=== PATIENT | female | born 1935 | race Caucasian/White ===

== ENCOUNTER 2023-03-26 10:23 | Observation (INO) ==
[2023-03-26 11:32] LABS: Calcium 9.7 mg/dL (8.6-10.3); Total Bilirubin 0.5 mg/dL (0.2-1.0)
[2023-03-26 11:38] LABS: Albumin/Globulin Ratio 1.3 (1-3); Creatinine, Serum 1.25 mg/dL (0.51-0.95); Globulin 3.2 g/dL (2-4); Total Protein 7.2 g/dL (6.4-8.9); eGFR CKD-EPI 41.7 (>60)
[2023-03-26 12:09] LABS: ABS Basophils 0.1 10^3/uL (0.0-0.1); ABS Eosinophils 0.2 10^3/uL (0.0-0.5); ABS Lymphocytes 0.6 10^3/uL (1.0-4.8); ABS Monocytes 0.8 10^3/uL (0.0-0.9); ABS Neutrophils 6.5 10^3/uL (1.5-7.6); Hematocrit 33.9 % (35-45); Hemoglobin 11.8 g/dL (11.5-14.3); Lymphocyte % 7.3 %; Mean Corpuscular Hemoglobin 32.1 pg (27-33); Mean Corpuscular Hgb Conc 34.8 g/dL (31-36); Mean Corpuscular Volume 92.3 fL (80-97); Mean Platelet Volume 8.1 fL (7.5-11.2); Platelet Count 392 10^3/uL (150-450); Red Blood Count 3.68 10^6/uL (3.63-4.92); White Blood Count 8.2 10^3/uL (3.8-11.8)
[2023-03-26 12:36] LABS: INR 1.84 (0.83-1.13)
[2023-03-26 12:39] LABS: High Sensitivity Troponin 1 Hr 8 pg/mL (<15)
[2023-03-27 06:30] LABS: Hematocrit 33.8 % (35-45); Hemoglobin 11.5 g/dL (11.5-14.3); Mean Corpuscular Hemoglobin 31.2 pg (27-33); Mean Corpuscular Hgb Conc 34.2 g/dL (31-36); Mean Corpuscular Volume 91.4 fL (80-97); Mean Platelet Volume 7.8 fL (7.5-11.2); Platelet Count 390 10^3/uL (150-450); Red Cell Distribution Width 13.9 % (12-17); White Blood Count 9.3 10^3/uL (3.8-11.8)
[2023-03-27 06:48] LABS: Calcium 9.6 mg/dL (8.6-10.3); Creatinine, Serum 1.11 mg/dL (0.51-0.95); Potassium 3.8 mmol/L (3.5-5.0); eGFR CKD-EPI 48.1 (>60)
[2023-03-27] MEDS ORDERED: Pravastatin 20 mg TAB (NF) PO SCH (09:00)
[2023-03-27] MEDS ORDERED: Aspirin EC 81 mg TAB.EC (enteric coated) PO SCH (09:00)
[2023-03-27] MEDS ORDERED: Regadenoson 0.4 MG/5 ML SYRINGE ONE (09:40)
[2023-03-27] MEDS ORDERED: Aminophylline 25 MG/ML VIAL ONE (09:40)
[2023-03-27] MEDS ORDERED: Aminophylline 25 MG/ML VIAL IV ONE (11:00)
[2023-03-27 14:48] VITALS: BP 108/59
[2023-03-27] MEDS ORDERED: Warfarin DAILY REMINDER **NOTE FOLLOW UP SCH (17:00)
== END 2023-03-27 16:20 | disposition home or self-care (01) ==
LOC: ED 10:23 → INTOOBSV 16:40 → SUATTDRO 16:40 → EDHOLD 16:40 → MEDTELE 17:56
PROVIDERS: ADMIT Internal Medicine; ATTEND Internal Medicine